=== PATIENT | male | born 1995 | race Caucasian/White ===

== ENCOUNTER 2024-09-30 16:22 | Emergency (ER) | payer SELFPAY ==
[2024-09-30] MEDS ORDERED: LIDOCAINE 1% MPF 5 ML VIAL ONE (16:36)
[2024-09-30] MEDS ORDERED: TDAP (DIPHTH,PERTUSS(ACELL),TET VAC) 0.5 ML VIAL IMVAC ONE (16:37)
--- NOTE | 2024-09-30 17:49 | EDPHYS ---
Physician Documentation [facility] Name: Aide Taveras Age: 29 yrs Sex: Male : 1995 Arrival Date: 09/30/2024 Time: 16:22 Bed 12 Private MD: ED Physician Asa Coombs HPI: 09/30 18:03 This 29 yrs old Male presents to ER via Ambulatory with complaints of dr5 Laceration. 18:03 Patient is a 29-year-old male with no possible history coming in with laceration to the dr5 left index finger that occurred from a pocket knife when he was trying to open a toy for his child.. 18:03 Last tetanus unknown. Will administer today.. dr5 Historical: - Allergies: 16:33 No Known Allergies; ss - Home Meds: 16:33 None [Active]; ss - PMHx: 16:33 None; ss - PSHx: 16:33 None; ss - Immunization history:: Last tetanus immunization: unknown. - Infectious Disease History:: Denies. - Social history:: Smoking status: Reported history of juuling and/or vaping. Patient/guardian denies using tobacco, Stopped _ months ago 1. ROS: 18:03 Constitutional: as per hpi dr5 Exam: 18:03 Constitutional: This is a well developed, well nourished patient who is awake, alert, dr5 and in no acute distress. Head/Face: Normocephalic, atraumatic. ENT: Nares patent. No nasal discharge, no septal abnormalities noted. Tympanic membranes are normal and external auditory canals are clear. Oropharynx with no redness, swelling, or masses, exudates, or evidence of obstruction, uvula midline. Mucous membranes moist. Neck: Trachea midline, no thyromegaly or masses palpated, and no cervical lymphadenopathy. Supple, full range of motion without nuchal rigidity, or vertebral point tenderness. No Meningismus. Chest/axilla: Normal chest wall appearance and motion. Nontender with no deformity. No lesions are appreciated. Cardiovascular: Regular rate and rhythm with a normal S1 and S2. Normal PMI, no JVD. No pulse deficits. Respiratory: Lungs have equal breath sounds bilaterally, clear to auscultation. No rales, rhonchi or wheezes noted. No increased work of breathing, no retractions or nasal flaring. Back: No spinal tenderness. No costovertebral tenderness. Full range of motion. MS/ Extremity: Pulses equal, no cyanosis. Neurovascular intact. Full, normal range of motion. 18:03 Skin: injury, laceration(s), the wound is approximately 1 cm(s), with a depth of .2 cm(s), of the dorsal aspect of middle phalanx of left index finger, 18:03 Musculoskeletal/extremity: Extremities: all appear grossly normal, with no appreciated dr5 pain with palpation, ROM: no acute changes, intact in all extremities, Circulation is intact in all extremities. Sensation intact. Vital Signs: 16:32 BP 142 / 83; Pulse 76; Resp 14; Temp 98.9(O); Pulse Ox 100% on R/A; Weight 104.33 kg; ss Height 5 ft. 8 in. ; Pain 0/10; 16:32 Body Mass Index 34.97 (104.33 kg, 172.72 cm) 16:32 Pain Scale: Adult ss Laceration: 18:03 Wound Repair of 1cm ( 0.4in ) subcutaneous laceration to left hand and dorsal aspect of dr5 middle phalanx of left index finger. Linear shaped.. Distal neuro/vascular/tendon intact. Anesthesia: Digital block administered with 2.5 mls of 1% lidocaine. Wound prep: Simple cleansing by me. Skin closed with 3 4-0 Prolene using simple sutures and sterile technique. Dressed with non-adherent dressing. Patient tolerated well. MDM: 16:27 Medical Screening Exam initiated dr5 18:03 Differential diagnosis: abrasion, contusion, laceration. Data reviewed: vital signs, dr5 nurses notes. I considered the following discharge prescriptions or medication management in the emergency department Medications were administered in the Emergency Department. See MAR. Care significantly affected by the following Social Determinants of Health: Poor access to healthcare and/or lack of insurance, Poor access to transportation, Problems related to employment. Counseling: I had a detailed discussion with the patient and/or guardian regarding the historical points, exam findings, and any diagnostic results supporting the discharge/admit diagnosis, the presence of at least one elevated blood pressure reading (>120/80) during this emergency department visit, the need for outpatient follow up, for definitive care, a family practitioner, to return to the emergency department if symptoms worsen or persist or if there are any questions or concerns that arise at home. Medication response: Lidocaine. ED course: Recommended patient get sutures removed in 7-10 days Tetanus was updated. Keflex prescribed. Recommended alternate Tylenol Motrin as needed for pain and fever. Have primary care, urgent care or ER to remove stitches. All questions answered. 09/30 16:32 Order name: Dressing - Wound; Complete Time: 17:35 dr5 09/30 16:32 Order name: Prolene, Sutures; Complete Time: 17:35 dr5 09/30 16:32 Order name: Setup Suture Tray; Complete Time: 16:42 dr5 Administered Medications: 16:39 Drug: Boostrix Tdap IM 0.5 ml IM once; as a single dose {Note: EB499 01/22/27.} Route: ld1 IM; Site: left deltoid; 18:04 Follow up: Response: No adverse reaction 17:35 Drug: Lidocaine Infiltration (1 %) 20 ml 20 ml Infiltration once; to bedside Volume: 20 ss ml; Route: Infiltration; Site: wound; 18:12 Follow up: Response: No adverse reaction ll1 Disposition: 22:17 Co-signature as Attending Physician, Asa Coombs MD I agree with the assessment and naeem plan of care. Disposition Summary: 09/30/24 17:47 Discharge Ordered Notes: Location: Home dr5 Condition: Stable dr5 Diagnosis - Hand Laceration/ Open wound of hand dr5 Followup: dr5 - With: Emergency Department - When: As needed - Reason: Worsening of condition Followup: dr5 - With: Private Physician - When: 7 - 10 days - Reason: Staple/Suture removal Discharge Instructions: - Discharge Summary Sheet dr5 - Laceration Care, Adult dr5 Forms: - Medication Reconciliation Form dr5 - Antibiotic Education dr5 - Patient Portal Instructions dr5 - Leadership Thank You Letter dr5 Prescriptions: - Cephalexin 500 mg Oral Capsule - take 1 capsule ORAL route every 12 hours for 10 days; 20 capsule; Refills: 0, dr5 Product Selection Permitted Signatures: Asa Coombs MD MD cha Blanchard, Shelby, RN RN Cesia Peterson RN RN ld1 Jan Angel, ANTONIA-C CRISIS THERAPIST-5 Sven Yusuf RN ll1
--- NOTE | 2024-09-30 17:49 | ER ---
Nurse's Notes [facility] Name: Aide Taveras Age: 29 yrs Sex: Male : 1995 Arrival Date: 09/30/2024 Time: 16:22 Bed 12 Private MD: Diagnosis: Hand Laceration/ Open wound of hand Presentation: 09/30 16:32 Chief complaint: Patient states: Laceration to L index finger that occurred 30 minutes ss [employer]. Pt reports he cut himself by accident with a pocket knife. Coronavirus screen: Client denies travel out of the [place] in the last 14 days. Ebola Screen: Patient denies exposure to infectious person. Patient denies travel to an Ebola-affected area in the 21 days before illness onset. Complicating Factors: There are no complicating factors for this patient. Initial Sepsis Screen: Does the patient meet any 2 criteria? No. Patient's initial sepsis screen is negative. Does the patient have a suspected source of infection? No. Patient's initial sepsis screen is negative. Risk Assessment: Do you want to hurt yourself or someone else? Patient reports no desire to harm self or others. Onset of symptoms was September 30, 2024. 16:32 Method Of Arrival: Ambulatory ss 16:32 Acuity: FLACO 4 ss Triage Assessment: 18:03 General: Appears in no apparent distress. Behavior is calm, cooperative, appropriate ll1 for age. Pain: Denies pain. Injury Description: Laceration. Historical: - Allergies: 16:33 No Known Allergies; ss - Home Meds: 16:33 None [Active]; ss - PMHx: 16:33 None; ss - PSHx: 16:33 None; ss - Immunization history:: Last tetanus immunization: unknown. - Infectious Disease History:: Denies. - Social history:: Smoking status: Reported history of juuling and/or vaping. Patient/guardian denies using tobacco, Stopped _ months ago 1. Screenin:38 Abuse screen: Denies threats or abuse. Denies injuries from another. Nutritional ss screening: No deficits noted. Tuberculosis screening: Never had TB. 18:03 [facility] ED Fall Risk Assessment (Adult) History of falling in the last 3 months, ll1 including since admission No falls in past 3 months (0 pts) Confusion or Disorientation No (0 pts) Intoxicated or Sedated No (0 pts) Impaired Gait No (0 pts) Mobility Assist Device Used No (0 pt) Altered Elimination No (0 pt) Score/Fall Risk Level 0 - 2 = Low Risk Maintained a safe environment, Hourly rounding (assess needs \T\ fall precautionary measures) done. Assessment: 17:38 Reassessment: Patient appears in no apparent distress at this time. Patient and/or ss family updated on plan of care and expected duration. Pain level reassessed. TEMO Montoya at bedside performing laceration repair. Neuro: Level of Consciousness is awake, alert, obeys commands, Oriented to person, place, time, situation. Respiratory: Respiratory effort is even, unlabored. 18:03 Reassessment: No changes from previously documented assessment. Patient and/or family ll1 updated on plan of care and expected duration. Pain level reassessed. Pain: Denies pain. Musculoskeletal: No deficits noted. 18:12 Injury Description: Laceration is clean. ll1 Vital Signs: 16:32 BP 142 / 83; Pulse 76; Resp 14; Temp 98.9(O); Pulse Ox 100% on R/A; Weight 104.33 kg; ss Height 5 ft. 8 in. ; Pain 0/10; 16:32 Body Mass Index 34.97 (104.33 kg, 172.72 cm) ss 16:32 Pain Scale: Adult ss ED Course: 16:26 Patient arrived in ED. gl 16:27 Jan Angel FNP-C [facility]. dr5 16:27 Asa Coombs MD is Attending Physician. dr5 16:33 Triage completed. ss 16:33 Arm band placed on right wrist. ss 17:35 Louisa Middleton, RN is Primary Nurse. ss 17:38 Patient has correct armband on for positive identification. Bed in low position. ss 17:38 Assist provider with laceration repair on left index finger that was 2.5 cm. or less ss using sutures. Performed by Jan NJ Patient tolerated well. Patient did not have IV access during this emergency room visit. 18:03 Provided Education on: finish all prescribed antibiotics. ll1 Administered Medications: 16:39 Drug: Boostrix Tdap IM 0.5 ml IM once; as a single dose {Note: EB499 01/22/27.} Route: ld1 IM; Site: left deltoid; 18:04 Follow up: Response: No adverse reaction ss 17:35 Drug: Lidocaine Infiltration (1 %) 20 ml 20 ml Infiltration once; to bedside Volume: 20 ss ml; Route: Infiltration; Site: wound; 18:12 Follow up: Response: No adverse reaction ll1 Medication: 18:04 Vaccine Information Statement (VIS) provided today. Questions and/or concerns ss addressed. VIS edition date: December 2019. Outcome: 17:47 Discharge ordered by . dr5 18:03 Discharged to home ambulatory, ss 18:03 Condition: good 18:03 Discharge instructions given to patient, family, Instructed on discharge instructions, follow up and referral plans. Demonstrated understanding of instructions, follow-up care, 18:03 Discharge instructions given to Instructed on medication usage, Demonstrated ss understanding of instructions, medications, 18:03 Prescriptions given X 1, ll1 18:04 Patient left the ED. ss Signatures: Louisa Middleton RN RN ss Sven Yusuf RN RN ll1 Cesia Peterson RN RN ld1 Jan Angel, AUTHOR'S AGENT-C AUTHOR'S AGENT-Cdr5 Lucrecia Roldan, Reg Reg gl Corrections: (The following items were deleted from the chart) 18:04 17:38 VIS not applicable for this client. ss ss
[2024-09-30 18:26] VITALS: BP 142/83; TEMP 98.9; O2SAT 100
== END 2024-09-30 18:04 | disposition home or self-care (01) ==
LOC: ER 16:22
DX: S61.211A Laceration without foreign body of left index finger without damage to nail, initial encounter (principal)
CPT/HCPCS: 12001; 90715; 96372; 99284; J2003